=== PATIENT | female | born 1940 | race Caucasian/White ===

== ENCOUNTER 2019-08-18 19:34 | Inpatient (IN) | payer MEDICARE, OTHER ==
[~2019-08-18] VITALS: Ht 160 cm; Wt 79.8 kg
--- NOTE | 2019-08-18 19:30 | NUR ---
RECEIVED PATIENT VIA GURNEY FROM [facility]. PATIENT IS A/O X4. MACEDONIAN SPEAKING BUT ABLE TO MAKE SIMPLE NEEDS KNOWN. C/O SOME PAIN IN RIGHT HIP. ORIGINAL DRESSING IN PLACE, CLEAN/DRY AND INTACT. VSS UPON ADMISSION. AFEBRILE. DENIES ANY SOB. NO RESP. DISTRESS NOTED. ABDUCTION PILLOW IN PLACE. ORIENTED PATIENT TO ROOM AND CALL LIGHT. MADE COMFORTABLE IN BED. BED ALARM ON. CALL LIGHT IN REACH. ALL NEEDS ATTENDED. WILL CONTINUE TO MONITOR AND ASSESS.
[2019-08-18] MEDS ORDERED: Z GUARD REMEDY PASTE 57 GM TUBE TOP PRN (20:15)
[2019-08-18] MEDS ORDERED: ZOLP5TAB2 PO ×2 (20:24)
[2019-08-18] MEDS ORDERED: CHOL10002 PO (20:24)
[2019-08-18] MEDS ORDERED: ACET-2154 PO (20:24)
[2019-08-18] MEDS ORDERED: SITA100T PO (20:24)
[2019-08-18] MEDS ORDERED: ASPI81TA31 PO (20:24)
[2019-08-18] MEDS ORDERED: LISI-603 PO (20:24)
[2019-08-18] MEDS ORDERED: OXYC5CAP18 PO (20:24)
[2019-08-18] MEDS ORDERED: AMLO2.5T2 PO (20:24)
[2019-08-18] MEDS ORDERED: METF-440 PO (20:24)
[2019-08-18] MEDS ORDERED: MIRA50TA PO (20:24)
[2019-08-18] MEDS ORDERED: ATOR20TA PO (20:24)
[2019-08-18] MEDS ORDERED: RIVA20TA PO (20:24)
[2019-08-18] MEDS ORDERED: LINA290C PO (20:24)
[2019-08-18] MEDS ORDERED: TIZA4TAB5 PO (20:24)
[2019-08-18] MEDS ORDERED: ZOLPIDEM 5 MG TABLET PO PRN (20:45)
--- NOTE | 2019-08-18 21:50 | NUR ---
PATIENT AWAKE IN BED. C/O PAIN IN RIGHT HIP. PATIENT GIVEN OXY IR 5MG PO PRN ORDERED PER MD. VSS. CALL LIGHT IN REACH. ALL NEEDS ATTENDED. WILL CONTINUE TO MONITOR AND ASSESS.
[2019-08-18] MEDS: OXYCODONE HCL 5 MG TABLET PO PRN (21:55)
[2019-08-18 22:26] VITALS: BP 145/68
--- NOTE | 2019-08-18 23:00 | NUR ---
PATIENT ASLEEP IN BED. NO RESP. DISTRESS NOTED. NO S/S OF PAIN OR DISCOMFORT. NO FACIAL GRIMACE NOTED. CALL LIGHT IN REACH. ALL NEEDS ATTENDED. WILL CONTINUE TO MONITOR AND ASSES.
[2019-08-18] MEDS: ATORVASTATIN 20 MG TABLET PO SCH (23:01)
[2019-08-19] MEDS: OXYCODONE HCL 5 MG TABLET PO PRN ×2 (03:22→08:45)
[2019-08-19 05:46] VITALS: BP 141/70
--- NOTE | 2019-08-19 05:46 | NUR ---
PATIENT ASLEEP IN BED. VSS. NO S/S OF PAIN OR DISCOMFORT. PATIENT WAS GIVEN OXY IR 5MG PO PRN AT 0330. EFFECTIVE. SLEPT WELL THROUGHOUT THE NIGHT. CALL LIGHT IN REACH. ALL NEEDS ATTENDED. WILL CONTINUE TO MONITOR AND ASSESS.
[2019-08-19 06:58] LABS: *BLOOD, URINE 2+ (NEGATIVE); *CLARITY,URINE CLOUDY (CLEAR); *COLOR,URINE YELLOW (YELLOW); *KETONES,URINE 1+ (NEGATIVE); *UROBILINOGEN,URINE 0.2 E.U./dl (NORMAL); LEUKOCYTE ESTERASE ,URINE NEGATIVE (NEGATIVE); NITRITE, URINE NEGATIVE (NEGATIVE); UGLUCOSE NEGATIVE (NEGATIVE)
[2019-08-19 08:00] VITALS: BP 142/73
[2019-08-19] MEDS: ASPIRIN 81 MG TAB.CHEW PO SCH (08:37)
[2019-08-19] MEDS: CHOLECALCIFEROL 1,000 UNIT TABLET PO SCH (08:37)
[2019-08-19] MEDS: METFORMIN HCL 500 MG TABLET PO SCH (08:37)
[2019-08-19] MEDS: TIZANIDINE HCL 4 MG TABLET PO SCH ×2 (08:38→17:25)
[2019-08-19] MEDS: LISINOPRIL 20 MG TABLET PO SCH (08:39)
[2019-08-19] MEDS: AMLODIPINE 2.5 MG TABLET PO SCH (08:39)
[2019-08-19 08:58] LABS: *BILIRUBIN,URIN 1+ (NEGATIVE)
[2019-08-19 09:09] LABS: SQUAMOUS EPITHELIAL CELL,UR MODERATE /HPF (NONE SEEN); URINE AMORPHOUS URATE MANY /HPF
[2019-08-19 09:13] LABS: BACTERIA,URINE MODERATE /HPF (NONE SEEN)
--- NOTE | 2019-08-19 13:58 | NUR ---
Pt received this morning resting in bed. Pt assessed, AOx4, able to make needs known in Burundian although primarily Nigerian speaking. Pt c/o pain 04/23, PRN OxyIR administered per MD orders. Pt reports slight relief to 02/20. Plan of care discussed. Pt complaint with routinely scheduled morning medications. New telephone orders from MD adjusting pain medication to OxyContin 10mg Q8hr, and adding Senakot S for constipation, will follow up as needed. Cooperative with therapies as offered, when able. All safety and comfort needs attended to. No s/s of infection. Call light and personal belongings placed within reach. Bed in locked and lowest position. Will continue to monitor.
[2019-08-19] MEDS ORDERED: DEXTROSE 50% 50 ML DISP.SYRIN IV PRN (14:15)
[2019-08-19] MEDS ORDERED: INSULIN REGULAR, HUMAN 300 UNIT/3 ML VIAL SQ PRN (14:15)
[2019-08-19] MEDS: SENNOSIDES/DOCUSATE SODIUM TABLET PO SCH (14:30)
[2019-08-19] MEDS: MIRALAX 17 GM POWD.PACK PO PRN (14:32)
[2019-08-19] MEDS: OXYCODONE HCL 10 MG TAB.SR.12H PO SCH ×2 (14:32→22:28)
[2019-08-19 14:40] LABS: BASOPHILS % (AUTO) 0.3 % (0.0-2.0); EOSINOPHILS % (AUTO) 0.1 % (0.0-7.0); HEMOGLOBIN 9.8 g/dL (10.9-14.3); LYMPHOCYTES # (AUTO) 1.9 K/uL (20.0-40.0); LYMPHOCYTES % (AUTO) 15.2 % (20.5-51.5); MEAN CORPUSCULAR HEMOGLOBIN 30.6 uug (24.7-32.8); MEAN CORPUSCULAR HGB CONC 34 g/dL (32.3-35.6); MEAN CORPUSCULAR VOLUME 90.6 fL (75.5-95.3); MONOCYTES # (AUTO) 1.4 K/uL (2.0-10.0); MONOCYTES % (AUTO) 10.8 % (0.0-11.0); NEUTROPHILS # (AUTO) 9.4 K/uL (1.8-8.9); NEUTROPHILS % (AUTO) 73.6 % (38.5-71.5); PLATELET COUNT (AUTO) 256 K/uL (179-408); WHITE BLOOD COUNT (AUTO) 12.8 K/uL (3.8-11.8)
[2019-08-19 14:50] LABS: CREATININE 0.9 mg/dL (0.6-1.3); POTASSIUM 4.6 mmol/L (3.5-5.1)
[2019-08-19 15:02] LABS: THYROID STIMULATING HORMONE 0.724 mIU/mL (0.358-3.740)
[2019-08-19 15:24] LABS: BILIRUBIN,TOTAL 0.5 mg/dL (0.2-1.0); MAGNESIUM 2.7 mg/dL (1.8-2.4); PHOSPHOROUS 2.9 mg/dL (2.5-4.9); URIC ACID 3.7 mg/dL (2.6-6.0)
[2019-08-19 16:42] VITALS: BP 99/55
[2019-08-19] MEDS: BLOOD SUGAR DIAGNOSTIC 1 EACH STRIP VI SCH ×2 (17:25→20:40)
[2019-08-19] MEDS: RIVAROXABAN 10 MG TABLET PO SCH (17:28)
[2019-08-19] MEDS ORDERED: ZOLPIDEM 5 MG TABLET PO SCH (18:00)
[2019-08-19] MEDS ORDERED: RIVAROXABAN 10 MG TABLET PO ONE (18:00)
[2019-08-19] MEDS ORDERED: RIVAROXABAN 10 MG TABLET PO SCH (18:00)
[2019-08-19] MEDS ORDERED: BISACODYL 5 MG TABLET.DR PO ONE (19:00)
[2019-08-19 19:26] VITALS: BP 98/58
--- NOTE | 2019-08-19 20:00 | NUR ---
Patient received into care, laying in bed, resting comfortably. Patient is alert/oriented x3 and has no complaints of pain or discomfort at this time. All safety and fall precaution measures are in place. Call light and personal items are within reach at all times. Will continue to monitor and assess.
[2019-08-19] MEDS ORDERED: ACETAMINOPHEN 325 MG TABLET PO PRN (20:15)
[2019-08-19] MEDS: ATORVASTATIN 20 MG TABLET PO SCH (20:32)
[2019-08-19] MEDS: DOCUSATE SODIUM 100 MG CAPSULE PO SCH (20:32)
[2019-08-20 04:38] VITALS: BP 135/67
[2019-08-20] MEDS: OXYCODONE HCL 10 MG TAB.SR.12H PO SCH ×2 (05:41→13:57)
--- NOTE | 2019-08-20 06:57 | NUR ---
Patient slept throughout night with no complaints of pain or discomfort verbalized or noted/observed by nurse. All prescribed medications provided as ordered and tolerated well by patient, with no adverse side effects verbalized or noted/observed by nurse. All nursing needs were met promptly and patient is warm, dry, and comfortable. All safety and fall precaution measures remain in place. Call light and personal items remain within reach at all times.
[2019-08-20 08:00] VITALS: BP 125/66
[2019-08-20] MEDS: DOCUSATE SODIUM 100 MG CAPSULE PO SCH ×2 (08:32→20:50)
[2019-08-20] MEDS: SENNOSIDES/DOCUSATE SODIUM TABLET PO SCH (08:32)
[2019-08-20] MEDS: CHOLECALCIFEROL 1,000 UNIT TABLET PO SCH (08:32)
[2019-08-20] MEDS: METFORMIN HCL 500 MG TABLET PO SCH (08:32)
[2019-08-20] MEDS: ASPIRIN 81 MG TAB.CHEW PO SCH (08:32)
[2019-08-20] MEDS: TIZANIDINE HCL 4 MG TABLET PO SCH ×2 (08:33→16:46)
[2019-08-20] MEDS: OXYCODONE HCL 5 MG TABLET PO PRN (08:33)
[2019-08-20] MEDS: LINAGLIPTIN 5 MG TABLET PO SCH (08:33)
[2019-08-20] MEDS: AMLODIPINE 2.5 MG TABLET PO SCH (08:34)
[2019-08-20] MEDS: LISINOPRIL 20 MG TABLET PO SCH (08:34)
[2019-08-20] MEDS ORDERED: Medication Not On Formulary EA (Sitagliptin Phosphate (Januvia) 100 MG) PO SCH (09:00)
[2019-08-20] MEDS ORDERED: MAGNESIUM HYDROXIDE 30 ML LIQUID UDC PO PRN (16:15)
[2019-08-20] MEDS ORDERED: BISACODYL 10 MG SUPP.RECT RC PRN (16:15)
[2019-08-20 16:34] VITALS: BP 150/54
[2019-08-20] MEDS: RIVAROXABAN 10 MG TABLET PO SCH (16:49)
--- NOTE | 2019-08-20 19:30 | NUR ---
Received patient in bed awake, alert and oriented. No complaints of pain at this time. Safety measures observed. Call light in reach
[2019-08-20 20:00] VITALS: BP 95/42
[2019-08-20 20:30] VITALS: BP 122/52
[2019-08-20] MEDS: OXYCODONE/APAP 5-325 MG TABLET PO SCH (20:50)
[2019-08-20] MEDS: ATORVASTATIN 20 MG TABLET PO SCH (20:50)
[2019-08-20 20:59] VITALS: BP 122/52
[2019-08-21] MEDS: OXYCODONE/APAP 5-325 MG TABLET PO SCH ×6 (00:28→21:23)
[2019-08-21 05:12] VITALS: BP 133/55
--- NOTE | 2019-08-21 06:39 | NUR ---
Patient slept intermittently. On routine pain management. c/o constipation, PRN Dulcolax supp and MOM given, still ineffective. All needs attended. Will endorse accordingly
[2019-08-21] MEDS: METFORMIN HCL 500 MG TABLET PO SCH (09:12)
[2019-08-21] MEDS: CHOLECALCIFEROL 1,000 UNIT TABLET PO SCH (09:27)
[2019-08-21] MEDS: SENNOSIDES/DOCUSATE SODIUM TABLET PO SCH (09:27)
[2019-08-21] MEDS: DOCUSATE SODIUM 100 MG CAPSULE PO SCH ×2 (09:27→21:23)
[2019-08-21] MEDS: ASPIRIN 81 MG TAB.CHEW PO SCH (09:27)
[2019-08-21] MEDS: LINAGLIPTIN 5 MG TABLET PO SCH (09:32)
[2019-08-21] MEDS: AMLODIPINE 2.5 MG TABLET PO SCH (09:33)
[2019-08-21] MEDS: LISINOPRIL 20 MG TABLET PO SCH (09:33)
[2019-08-21] MEDS: TIZANIDINE HCL 4 MG TABLET PO SCH (09:33)
[2019-08-21 10:14] VITALS: BP 162/52
--- NOTE | 2019-08-21 12:42 | NUR ---
INDIVIDUALIZE OVERALL PLAN OF CARE
[2019-08-21 16:40] VITALS: BP 109/60
[2019-08-21] MEDS: RIVAROXABAN 10 MG TABLET PO SCH (18:06)
--- NOTE | 2019-08-21 19:30 | NUR ---
Received patient in bed asleep but aroused easily. No SOB noted. No complaints of pain at this time. Safety measures observed. Call light in reach
--- NOTE | 2019-08-21 19:51 | NUR ---
Patient is AAO x 4, Guyanese speaking mostly but able to express needs in Estonian. NO acute distress noted. Patient in RA and sating above 96%. Vital signs taken and stable for patient. Due medications administered. Right hip surgical site intact and dry. On routine Percocet 5/325mg PO 1 tab for pain mgnt and effective. Pt. on PT/OT therapy. Daughter was here and discussed plan of care and explained procedures and policies regarding pt.'s own medications. Daughter signed and took patient's medications that was received from admission. Thanked for the care provided. Needs met, safety measures in place, call light left at bed side and will continue wit care.
[2019-08-21 19:58] VITALS: BP 127/42
[2019-08-21] MEDS: ATORVASTATIN 20 MG TABLET PO SCH (21:23)
[2019-08-22] MEDS: OXYCODONE/APAP 5-325 MG TABLET PO SCH ×6 (00:29→20:42)
[2019-08-22 04:46] VITALS: BP 136/66
--- NOTE | 2019-08-22 07:12 | NUR ---
Patient slept well. No c/o pain at this time. On routine pain management. Dressing on R hip intact and dry. All needs attended. Will endorse accordingly
[2019-08-22 07:38] LABS: BASOPHILS # (AUTO) 0.1 K/uL (0.0-8.0); BASOPHILS % (AUTO) 0.6 % (0.0-2.0); EOSINOPHILS # (AUTO) 0.2 K/uL (0.0-0.7); EOSINOPHILS % (AUTO) 2.5 % (0.0-7.0); HEMATOCRIT 26.9 % (31.2-41.9); HEMOGLOBIN 9.2 g/dL (10.9-14.3); LYMPHOCYTES # (AUTO) 1.3 K/uL (20.0-40.0); LYMPHOCYTES % (AUTO) 15.5 % (20.5-51.5); MEAN CORPUSCULAR HGB CONC 34 g/dL (32.3-35.6); MEAN CORPUSCULAR VOLUME 90.3 fL (75.5-95.3); MONOCYTES # (AUTO) 0.8 K/uL (2.0-10.0); MONOCYTES % (AUTO) 9.7 % (0.0-11.0); NEUTROPHILS # (AUTO) 5.8 K/uL (1.8-8.9); NEUTROPHILS % (AUTO) 71.7 % (38.5-71.5); PLATELET COUNT (AUTO) 262 K/uL (179-408); RED BLOOD CELL COUNT(AUTO) 2.98 MIL/uL (3.63-4.92); WHITE BLOOD COUNT (AUTO) 8.1 K/uL (3.8-11.8)
[2019-08-22 07:39] LABS: CARBON DIOXIDE 29 mmol/L (21-32); CHLORIDE 103 mmol/L (98-107); CREATININE 0.5 mg/dL (0.6-1.3); GLUCOSE 97 mg/dL (74-106); POTASSIUM 4.1 mmol/L (3.5-5.1); UREA NITROGEN, BLOOD 28 mg/dL (7-18)
[2019-08-22 07:40] VITALS: BP 132/50
[2019-08-22] MEDS: CHOLECALCIFEROL 1,000 UNIT TABLET PO SCH (08:24)
[2019-08-22] MEDS: SENNOSIDES/DOCUSATE SODIUM TABLET PO SCH (08:24)
[2019-08-22] MEDS: ASPIRIN 81 MG TAB.CHEW PO SCH (08:24)
[2019-08-22] MEDS: DOCUSATE SODIUM 100 MG CAPSULE PO SCH ×2 (08:24→20:42)
[2019-08-22] MEDS: LINAGLIPTIN 5 MG TABLET PO SCH (08:25)
[2019-08-22] MEDS: METFORMIN HCL 500 MG TABLET PO SCH (08:25)
[2019-08-22] MEDS: AMLODIPINE 2.5 MG TABLET PO SCH (08:27)
[2019-08-22] MEDS: LISINOPRIL 20 MG TABLET PO SCH (09:00)
[2019-08-22 15:29] VITALS: BP 113/50
[2019-08-22] MEDS: RIVAROXABAN 10 MG TABLET PO SCH (17:37)
--- NOTE | 2019-08-22 18:36 | NUR ---
Pt assessed, able to make needs known, no acute distress, or SOB. Pt reports pain being managed through medication regimen, although at time breaker machine tender. VSS on 2 L NC. Pt compliant with medication administration and therapies as offered. Hip precautions in place. Right hip dressing dry and intact. No s/s of infection. All safety and comfort needs attended to, call light and personal items within reach. Bed locked, in lowest position with side rails up x2, and alarm on. Will continue to monitor.
--- NOTE | 2019-08-22 19:45 | NUR ---
RECEIVED PT AWAKE, ALERT AND ORIENTEDX3. PT IN NO ACUTE DISTRESS . SAFETY AND COMFORT PROVIDED. WILL CONTINUE TO MONITOR.
[2019-08-22 20:15] VITALS: BP 146/56
[2019-08-22] MEDS: ATORVASTATIN 20 MG TABLET PO SCH (20:42)
[2019-08-23] MEDS: OXYCODONE/APAP 5-325 MG TABLET PO SCH ×4 (00:09→12:08)
[2019-08-23 04:16] VITALS: BP 136/65
--- NOTE | 2019-08-23 06:14 | NUR ---
PT SLEPT INTERMITTENTLY.PT IN NO ACUTE DISTRESS. PRESCRIBED MEDICATION GIVEN AND PT TOLERATED IT WELL. DRESSING ON RIGHT HIP INTACT. SAFETY AND COMFORT PROVIDED. ALL NEEDS ARE MET. WILL ENDORSE ACCORDINGLY TO INCOMING NURSE FOR CONTINUITY OF CARE.
[2019-08-23 07:40] VITALS: BP 127/61
--- NOTE | 2019-08-23 08:00 | NUR ---
Received patient in bed, awake and verbally responsive. No signs of distress noted. No SOB. No complain of pain at this time. kept the call light within easy reach. kept comfortable. Will continue to monitor.
[2019-08-23] MEDS: DOCUSATE SODIUM 100 MG CAPSULE PO SCH ×2 (08:25→20:37)
[2019-08-23] MEDS: ASPIRIN 81 MG TAB.CHEW PO SCH (08:25)
[2019-08-23] MEDS: LINAGLIPTIN 5 MG TABLET PO SCH (08:26)
[2019-08-23] MEDS: CHOLECALCIFEROL 1,000 UNIT TABLET PO SCH (08:26)
[2019-08-23] MEDS: SENNOSIDES/DOCUSATE SODIUM TABLET PO SCH (08:26)
[2019-08-23] MEDS: METFORMIN HCL 500 MG TABLET PO SCH (08:26)
[2019-08-23] MEDS: LISINOPRIL 20 MG TABLET PO SCH (08:27)
[2019-08-23] MEDS: AMLODIPINE 2.5 MG TABLET PO SCH (08:27)
[2019-08-23] MEDS: OXYCODONE HCL 10 MG TAB.SR.12H PO SCH ×2 (14:48→18:06)
[2019-08-23 15:48] VITALS: BP 128/57
[2019-08-23] MEDS: RIVAROXABAN 10 MG TABLET PO SCH (18:08)
--- NOTE | 2019-08-23 18:29 | NUR ---
patient in bed, awake, alert and verbally responsive. No signs of distress. No SOB. Routine pain medications given as ordered. All needs attended and met. patient able to Ambulate to restroom with minimal Assist. kept the call light within easy reach. Will endorse to Oncoming Nurse.
--- NOTE | 2019-08-23 19:40 | NUR ---
Awake, watching TV during initial rounds. Panamanian speaking, No s/s of pain/discomforts at this time. Safety measure and fall precaution maintained. Continue care as planned.
[2019-08-23] MEDS: ATORVASTATIN 20 MG TABLET PO SCH (20:37)
[2019-08-23 20:41] VITALS: BP 137/53
[2019-08-24] MEDS: OXYCODONE HCL 10 MG TAB.SR.12H PO SCH ×5 (00:02→22:56)
[2019-08-24 06:02] VITALS: BP 136/68
--- NOTE | 2019-08-24 07:15 | NUR ---
Shift End Report: VS stable. Slept in between care. On routine Oxycontin as ordered with help. All needs attended and met. No significant event reported all night. Continue current rehab plan of care.
--- NOTE | 2019-08-24 07:15 | NUR ---
Received patient in bed, awake and verbally responsive. No signs of distress noted. No SOB. No complain of Pain or discomfort noted. Kept the call light within easy reach. Will continue to monitor.
[2019-08-24 08:08] VITALS: BP 145/55
[2019-08-24] MEDS: METFORMIN HCL 500 MG TABLET PO SCH (08:16)
[2019-08-24] MEDS: ASPIRIN 81 MG TAB.CHEW PO SCH (08:17)
[2019-08-24] MEDS: CHOLECALCIFEROL 1,000 UNIT TABLET PO SCH (08:18)
[2019-08-24] MEDS: DOCUSATE SODIUM 100 MG CAPSULE PO SCH ×2 (08:18→20:36)
[2019-08-24] MEDS: SENNOSIDES/DOCUSATE SODIUM TABLET PO SCH (08:18)
[2019-08-24] MEDS: AMLODIPINE 2.5 MG TABLET PO SCH (08:18)
[2019-08-24] MEDS: LINAGLIPTIN 5 MG TABLET PO SCH (08:19)
[2019-08-24] MEDS: LISINOPRIL 20 MG TABLET PO SCH (08:19)
[2019-08-24 14:42] VITALS: BP 112/52
[2019-08-24] MEDS: RIVAROXABAN 10 MG TABLET PO SCH (17:51)
--- NOTE | 2019-08-24 18:38 | NUR ---
Patient in Bed, awake and verbally responsive. No signs of distress noted. No SOB. On routine pain medications as ordered. No complain of pain at this time. Able to Ambulate with FWW. All needs attended and met. kept clean and comfortable. Kept the call light within easy reach. Will endorse to Oncoming Nurse.
--- NOTE | 2019-08-24 19:20 | NUR ---
Received patient awake in bed, AO x 4, Filipino speaking, understands some Yemeni. Patient in no apparent distress at the moment. No shortness of breath. Bed locked, in low position with two side rails up. Safety protocols in place. Immediate needs attended. Call light within reach. Will continue to monitor throughout shift.
[2019-08-24 19:41] VITALS: BP 122/61
[2019-08-24] MEDS: ATORVASTATIN 20 MG TABLET PO SCH (20:36)
[2019-08-25 04:52] VITALS: BP 134/57
[2019-08-25] MEDS: OXYCODONE HCL 10 MG TAB.SR.12H PO SCH ×3 (05:26→18:27)
--- NOTE | 2019-08-25 06:37 | NUR ---
PATIENT SLEPT WELL THROUGHOUT THE NIGHT. COMPLAINED OF PAIN, MANAGED PAIN APPROPRIATELY WITH MEDICATIONS. VITAL SIGNS WITHIN NORMAL LIMITS. NEEDS ATTENDED. WILL ENDORSE TO ONCOMING SHIFT.
[2019-08-25 08:00] VITALS: BP 131/63
[2019-08-25] MEDS: METFORMIN HCL 500 MG TABLET PO SCH (09:31)
[2019-08-25] MEDS: OXYCODONE/APAP 5-325 MG TABLET PO PRN (09:31)
[2019-08-25] MEDS: ASPIRIN 81 MG TAB.CHEW PO SCH (09:32)
[2019-08-25] MEDS: SENNOSIDES/DOCUSATE SODIUM TABLET PO SCH (09:33)
[2019-08-25] MEDS: DOCUSATE SODIUM 100 MG CAPSULE PO SCH ×2 (09:33→20:17)
[2019-08-25] MEDS: LINAGLIPTIN 5 MG TABLET PO SCH (09:34)
[2019-08-25] MEDS: LISINOPRIL 20 MG TABLET PO SCH (09:34)
[2019-08-25] MEDS: AMLODIPINE 2.5 MG TABLET PO SCH (09:34)
[2019-08-25] MEDS: CHOLECALCIFEROL 1,000 UNIT TABLET PO SCH (09:36)
[2019-08-25 16:51] VITALS: BP 118/57
[2019-08-25] MEDS: RIVAROXABAN 10 MG TABLET PO SCH (18:30)
--- NOTE | 2019-08-25 19:40 | NUR ---
Received patient in bed, watching video on her laptop. AAO x4. Not in acute distress or SOB. On room air. Able to make needs known. No complain of pain at this time. Physical assessment done. Fall prevention observed. Safety measures maintained. Bed in low and lock position, alarm on, side rails up x2 for safety. Call light and frequently used items within reach. Continue to monitor.
[2019-08-25 20:11] VITALS: BP 125/64
[2019-08-25] MEDS: ATORVASTATIN 20 MG TABLET PO SCH (20:18)
[2019-08-26] MEDS: OXYCODONE HCL 10 MG TAB.SR.12H PO SCH ×6 (00:45→23:16)
--- NOTE | 2019-08-26 02:05 | NUR ---
Could not give the scheduled Oxycodone 10 mg tab on time at 0000 because the patient was sleeping, no sign of pain. She woke up and asked for pain medication at 0158. Pain medication given at that time. Continue to monitor.
[2019-08-26 04:30] VITALS: BP 128/79
[2019-08-26 08:00] VITALS: BP 123/68
[2019-08-26] MEDS: SENNOSIDES/DOCUSATE SODIUM TABLET PO SCH (08:59)
[2019-08-26] MEDS: ASPIRIN 81 MG TAB.CHEW PO SCH (08:59)
[2019-08-26] MEDS: DOCUSATE SODIUM 100 MG CAPSULE PO SCH ×2 (08:59→20:40)
[2019-08-26] MEDS: CHOLECALCIFEROL 1,000 UNIT TABLET PO SCH (08:59)
[2019-08-26] MEDS: METFORMIN HCL 500 MG TABLET PO SCH (08:59)
[2019-08-26] MEDS: OXYCODONE/APAP 5-325 MG TABLET PO PRN (09:00)
[2019-08-26] MEDS: LINAGLIPTIN 5 MG TABLET PO SCH (09:08)
[2019-08-26] MEDS: LISINOPRIL 20 MG TABLET PO SCH (09:09)
[2019-08-26] MEDS: AMLODIPINE 2.5 MG TABLET PO SCH (09:09)
[2019-08-26] MEDS: MIRALAX 17 GM POWD.PACK PO PRN (12:25)
[2019-08-26 16:57] VITALS: BP 132/58
[2019-08-26] MEDS: RIVAROXABAN 10 MG TABLET PO SCH (17:26)
--- NOTE | 2019-08-26 19:50 | NUR ---
PATIENT ALERT ORIENTED, NO SOB NO CHEST PAIN, R HIP WITH TANVIR, NO DRAINAGE NOTED, PATIENT ON PAIN MANAGEMENT ORDERED, KEPT CLEAN DRY AND COMFORTABLE, CALL LIGHT WITHIN REACH.
[2019-08-26] MEDS: ATORVASTATIN 20 MG TABLET PO SCH (20:40)
[2019-08-26 20:54] VITALS: BP 143/62
[2019-08-27 04:20] VITALS: BP 135/63
[2019-08-27] MEDS: OXYCODONE HCL 10 MG TAB.SR.12H PO SCH ×4 (05:12→23:39)
--- NOTE | 2019-08-27 05:43 | NUR ---
PATIENT ALERT ORIENTED, NO SOB NO CHEST PAIN, CONT ON PAIN MANAGEMENT DUE R HIP SURGERY. PATIENT MEDICATION EFFECTIVE AT THIS TIME. PATIENT ASSISTED WITH TOILETING, KEPT CLEAN AND DRY, CONT TO MONITOR.
[2019-08-27 07:42] VITALS: BP 144/76
--- NOTE | 2019-08-27 08:00 | NUR ---
Received patient in bed, awake and verbally responsive. No signs of distress noted. No SOB. No complain of Pain or discomfort noted. Kept the call light within easy reach. Will continue to monitor for safety and comfort.
[2019-08-27] MEDS: SENNOSIDES/DOCUSATE SODIUM TABLET PO SCH (08:30)
[2019-08-27] MEDS: CHOLECALCIFEROL 1,000 UNIT TABLET PO SCH (08:31)
[2019-08-27] MEDS: OXYCODONE/APAP 5-325 MG TABLET PO PRN (08:31)
[2019-08-27] MEDS: DOCUSATE SODIUM 100 MG CAPSULE PO SCH ×2 (08:32→21:55)
[2019-08-27] MEDS: AMLODIPINE 2.5 MG TABLET PO SCH (08:32)
[2019-08-27] MEDS: ASPIRIN 81 MG TAB.CHEW PO SCH (08:32)
[2019-08-27] MEDS: METFORMIN HCL 500 MG TABLET PO SCH (08:32)
[2019-08-27] MEDS: LINAGLIPTIN 5 MG TABLET PO SCH (08:32)
[2019-08-27] MEDS: LISINOPRIL 20 MG TABLET PO SCH (08:33)
--- NOTE | 2019-08-27 14:33 | NUR ---
PT TRANSPORTED TO DR. SALES FOR APPOINTMENT. XRAY CD, PROG SHEET, ORDER SHEET AND LIST OF MEDS GIVEN TO AMBULANCE TRANSPORT STAFF. NO ACUTE DISTRESS OR SOB NOTED. PT ALERT AND ORIENTED X4.
--- NOTE | 2019-08-27 16:45 | NUR ---
PT RETURN FROM APPT WITH DR. JENKINS. NEW ORDERS PER DR. JENKINS: PT, WBAT WITH WALKER. F/U WITH DR. JENKINS IN 4 TO 6 WEEKS. ORDERS UPDATED.
[2019-08-27] MEDS: RIVAROXABAN 10 MG TABLET PO SCH (17:09)
[2019-08-27 17:16] VITALS: BP 150/74
--- NOTE | 2019-08-27 18:00 | NUR ---
PT RESTING IN BED. PAIN MANAGED WITH MEDICATION. PT STATES HAVING A PAIN LEVEL OF 4 AFTER MEDS. INCISION SITE CLEAN WITHOUT DRAINAGE. NO ACUTE DISTRESS OR SOB NOTED. BED LOCKED AND IN LOW POSITION. CALL LIGHT WITHIN REACH. PT PLEASANT AND COOPERATIVE. A+O X4. PT IS DIET AND MEDICATION COMPLIANT. WILL GIVE REPORT ACCORDINGLY TO INCOMING SHIFT.
--- NOTE | 2019-08-27 19:55 | NUR ---
PT'S ON BED AWAKE,ALERT AND RESPONSIVE, NOT IN DISTRESS, NO C/O PAIN NOR DISCOMFORT AT THIS TIME. RIGHT HIP SURGICAL INCISION WITH STERI STRIPS INTACT AND OPEN TO AIR.NO REDNESS ON THE SURROUNDING AREA.
[2019-08-27 21:33] VITALS: BP 146/54
[2019-08-27] MEDS: ATORVASTATIN 20 MG TABLET PO SCH (21:55)
[2019-08-28] MEDS: OXYCODONE HCL 10 MG TAB.SR.12H PO SCH ×4 (06:18→23:52)
[2019-08-28 06:23] VITALS: BP 146/63
--- NOTE | 2019-08-28 07:31 | NUR ---
PICTURE TAKEN SCHEDULED. PT SLEPT WELL DURING THE SHIFT . ROUTINE PAIN MED OXYCODONE 10 MG PO Q GIVEN SCHEDULED 6H, EFFECTIVE . ASSISTED TO THE BATHROOM FOR SAFETY.
--- NOTE | 2019-08-28 08:00 | NUR ---
Received patient awake in bed. AAOx4. Mainly Nicaraguan speaking but able to verbalize basic needs in [place] African. No SOB noted. Complaining of R hip pain of 8/10; will medicate appropriately. Steristrips on R hip surgical incision intact; clean and dry. No s/s of infection. Safety measures implemented. Call light within reach. Will continue to monitor.
[2019-08-28] MEDS: AMLODIPINE 2.5 MG TABLET PO SCH (08:26)
[2019-08-28] MEDS: SENNOSIDES/DOCUSATE SODIUM TABLET PO SCH (08:26)
[2019-08-28] MEDS: DOCUSATE SODIUM 100 MG CAPSULE PO SCH ×2 (08:26→20:41)
[2019-08-28] MEDS: LINAGLIPTIN 5 MG TABLET PO SCH (08:26)
[2019-08-28] MEDS: ASPIRIN 81 MG TAB.CHEW PO SCH (08:26)
[2019-08-28] MEDS: OXYCODONE/APAP 5-325 MG TABLET PO PRN ×2 (08:26→20:43)
[2019-08-28] MEDS: LISINOPRIL 20 MG TABLET PO SCH (08:27)
[2019-08-28] MEDS: CHOLECALCIFEROL 1,000 UNIT TABLET PO SCH (08:27)
[2019-08-28] MEDS: METFORMIN HCL 500 MG TABLET PO SCH (08:27)
[2019-08-28 08:59] VITALS: BP 118/64
[2019-08-28] MEDS: RIVAROXABAN 10 MG TABLET PO SCH (17:26)
--- NOTE | 2019-08-28 17:58 | NUR ---
Patient resting in bed comfortably at this time. Patient verbalized that pain is relieved at this time at 2/10. No SOB noted. Denies chest pain. Comfort provided at all times. Will endorse care accordingly.
--- NOTE | 2019-08-28 19:35 | NUR ---
Awake during initial rounds, watching TV at this time, presenting tolerable pain on her lower back. Turned and repositioned for comfort. Will monitor. Safety measure and fall precaution maintained. Continue care as planned.
[2019-08-28 19:55] VITALS: BP 133/61
[2019-08-28] MEDS: ATORVASTATIN 20 MG TABLET PO SCH (20:41)
[2019-08-28] MEDS: MIRALAX 17 GM POWD.PACK PO PRN (20:45)
[2019-08-29 04:38] VITALS: BP 147/68
[2019-08-29] MEDS: OXYCODONE HCL 10 MG TAB.SR.12H PO SCH ×4 (05:39→23:25)
--- NOTE | 2019-08-29 06:52 | NUR ---
Shift End Report: VS stable. Slept good. Medicated once for complaint of pain with relief. No further complaint presented. All needs attended and met. No significant event reported. Continue current rehab plan of care.
[2019-08-29 07:27] LABS: BASOPHILS # (AUTO) 0.1 K/uL (0.0-8.0); EOSINOPHILS # (AUTO) 0.2 K/uL (0.0-0.7); EOSINOPHILS % (AUTO) 3.3 % (0.0-7.0); HEMATOCRIT 28.3 % (31.2-41.9); HEMOGLOBIN 9.9 g/dL (10.9-14.3); LYMPHOCYTES # (AUTO) 1.1 K/uL (20.0-40.0); LYMPHOCYTES % (AUTO) 15.4 % (20.5-51.5); MEAN CORPUSCULAR HEMOGLOBIN 32.9 uug (24.7-32.8); MEAN CORPUSCULAR HGB CONC 35 g/dL (32.3-35.6); MONOCYTES # (AUTO) 0.8 K/uL (2.0-10.0); MONOCYTES % (AUTO) 11.3 % (0.0-11.0); NEUTROPHILS # (AUTO) 4.9 K/uL (1.8-8.9); PLATELET COUNT (AUTO) 338 K/uL (179-408); RED BLOOD CELL COUNT(AUTO) 3.01 MIL/uL (3.63-4.92); WHITE BLOOD COUNT (AUTO) 7.1 K/uL (3.8-11.8)
[2019-08-29 07:40] LABS: CREATININE 0.6 mg/dL (0.6-1.3); MAGNESIUM 1.8 mg/dL (1.8-2.4); PHOSPHOROUS 3.7 mg/dL (2.5-4.9); POTASSIUM 3.8 mmol/L (3.5-5.1)
[2019-08-29] MEDS: CHOLECALCIFEROL 1,000 UNIT TABLET PO SCH (08:31)
[2019-08-29] MEDS: DOCUSATE SODIUM 100 MG CAPSULE PO SCH ×2 (08:31→20:17)
[2019-08-29] MEDS: LISINOPRIL 20 MG TABLET PO SCH (08:31)
[2019-08-29] MEDS: SENNOSIDES/DOCUSATE SODIUM TABLET PO SCH (08:31)
[2019-08-29] MEDS: METFORMIN HCL 500 MG TABLET PO SCH (08:31)
[2019-08-29] MEDS: LINAGLIPTIN 5 MG TABLET PO SCH (08:32)
[2019-08-29] MEDS: ASPIRIN 81 MG TAB.CHEW PO SCH (08:32)
[2019-08-29] MEDS: AMLODIPINE 2.5 MG TABLET PO SCH (08:32)
[2019-08-29] MEDS: OXYCODONE/APAP 5-325 MG TABLET PO PRN (08:56)
[2019-08-29 10:10] VITALS: BP 132/49
--- NOTE | 2019-08-29 14:58 | NUR ---
PATIENT CONTINUE THERAPY FOR AMBULATION AND ADL ACTIVITIES. CONTINUE TURNING POSITION FOR SKIN BUTTOCKS OPEN WOUND. CONTINUE SKIN TREATMENT PROVIDED. PATIENT REFUSE BED ALARM ON DESPITE EDUCATION. ADVICE PATIENT TO CALL STAFF WHEN GOING OUT FROM BED FOR FALL PRECAUTION. PATIENT AGREED. CALL LIGHT ON BEDSIDE. WILL CONTINUE MONITOR
[2019-08-29 15:55] VITALS: BP 129/53
[2019-08-29] MEDS: RIVAROXABAN 10 MG TABLET PO SCH (17:05)
--- NOTE | 2019-08-29 19:40 | NUR ---
Received patient in bed. AAO x4. Not in acute distress or SOB. On room air. Able to make needs known. No complain of pain at this time. Physical assessment done. Fall prevention observed. Safety measures maintained. Bed in low and lock position, alarm on, side rails up x2 for safety. Call light and frequently used items within reach. Continue to monitor.
[2019-08-29 19:42] VITALS: BP 114/51
[2019-08-29] MEDS: ATORVASTATIN 20 MG TABLET PO SCH (20:17)
[2019-08-30 04:59] VITALS: BP 147/60
[2019-08-30] MEDS: OXYCODONE HCL 10 MG TAB.SR.12H PO SCH ×4 (05:42→23:46)
[2019-08-30] MEDS: AMLODIPINE 2.5 MG TABLET PO SCH (08:31)
[2019-08-30] MEDS: LINAGLIPTIN 5 MG TABLET PO SCH (08:31)
[2019-08-30] MEDS: METFORMIN HCL 500 MG TABLET PO SCH (08:31)
[2019-08-30] MEDS: CHOLECALCIFEROL 1,000 UNIT TABLET PO SCH (08:31)
[2019-08-30] MEDS: ASPIRIN 81 MG TAB.CHEW PO SCH (08:31)
[2019-08-30] MEDS: SENNOSIDES/DOCUSATE SODIUM TABLET PO SCH (08:31)
[2019-08-30] MEDS: DOCUSATE SODIUM 100 MG CAPSULE PO SCH ×2 (08:31→20:42)
[2019-08-30] MEDS: LISINOPRIL 20 MG TABLET PO SCH (08:32)
[2019-08-30 09:01] VITALS: BP 149/70
--- NOTE | 2019-08-30 13:56 | NUR ---
WOUND CARE CONSULT: PT PRESENTS WITH HEALING SCRATCH TO LEFT BUTTOCK. RECOMMENDATIONS MADE FOR SKIN CARE AND PROTECTION. DISCUSSED WITH NURSING STAFF. PT IS CONTINENT. WILL SEE PRN. SINGH IN AGREEMENT WITH PLAN OF CARE. Addendum: 08/30/19 at 1357 by TAYA WHITFIELD RN Amended: Links added.
--- NOTE | 2019-08-30 14:01 | NUR ---
PATIENT SEEN AND EXAMINED BY WOUND NURSE REGARDING HEALING SCRATCH IN LEFT BUTTOCKS. ORDERED CLEANSE THE WOUND AND APPLIED Z GUARD, COVERED WITH MEPILIEX. WILL CONTINUE MONITOR
--- NOTE | 2019-08-30 15:21 | NUR ---
INTERDISCIPLINARY TEAM CONFERENCE
[2019-08-30 15:43] VITALS: BP 134/64
[2019-08-30] MEDS: RIVAROXABAN 10 MG TABLET PO SCH (17:03)
[2019-08-30] MEDS: ATORVASTATIN 20 MG TABLET PO SCH (20:43)
[2019-08-30 20:59] VITALS: BP 135/50
--- NOTE | 2019-08-31 04:21 | NUR ---
aaox4. admitted for right total hip arthroplasty. Right hip incision with steristrips MALI. Needs attended. VSS. On pain meds as scheduled, given with relief noted. OOB to the BR with walker with supervision. Voiding freely. No acute distress noted. For discharge today. Will monitor patient.
[2019-08-31 05:47] VITALS: BP 139/58
[2019-08-31] MEDS: OXYCODONE HCL 10 MG TAB.SR.12H PO SCH ×2 (06:02→11:49)
--- NOTE | 2019-08-31 06:45 | NUR ---
End of shift note: slept well most of the shift. Tolerated po meds well especially oxycontin 10mg given at scheduled times. OOB to the BR with shona. Voiding without difficulty. Right hip steristrips intact. For discharge today.
--- NOTE | 2019-08-31 07:34 | NUR ---
patient noted resting in bed with eyes closed, no facial cues of pain at this time, no signs of distress noted, call light in reach, bed locked locked and in lowest position, all needs met
[2019-08-31 08:54] VITALS: BP 143/39
[2019-08-31] MEDS: SENNOSIDES/DOCUSATE SODIUM TABLET PO SCH (08:57)
[2019-08-31] MEDS: CHOLECALCIFEROL 1,000 UNIT TABLET PO SCH (08:57)
[2019-08-31] MEDS: METFORMIN HCL 500 MG TABLET PO SCH (08:57)
[2019-08-31] MEDS: DOCUSATE SODIUM 100 MG CAPSULE PO SCH (08:57)
[2019-08-31] MEDS: LINAGLIPTIN 5 MG TABLET PO SCH (08:57)
[2019-08-31] MEDS: ASPIRIN 81 MG TAB.CHEW PO SCH (08:57)
[2019-08-31 08:58] VITALS: BP 143/59
[2019-08-31] MEDS: LISINOPRIL 20 MG TABLET PO SCH (08:58)
[2019-08-31] MEDS: AMLODIPINE 2.5 MG TABLET PO SCH (08:58)
--- NOTE | 2019-08-31 13:04 | NUR ---
patient discharged at this time via private car and son in law, vitals: 143/59, 94% on room air, 18 respirations, 82 pulse, 98.0 oral temperature, pictures of right hip incision and left buttocks abrasion taken and placed in chart, MD Amin and Nicole [employer] OPERATOR notified of patients discharge, exit care provided, discharge paperwork signed and copy made, all belongings accounted for, Medication Rx and pain medication script given to patient, family instructed to set of follow up appointment in 1 month, CD Xray of right hip given patient, all needs met
== END 2019-08-31 13:00 | disposition home health service (06) | DRG 561 ==
PROVIDERS: ADMIT Physical Medicine & Rehabilitation Pain Medicine; ATTEND Physical Medicine & Rehabilitation Pain Medicine
DX: Z47.1 Aftercare following joint replacement surgery (principal); Z96.641 Presence of right artificial hip joint; M16.11 Unilateral primary osteoarthritis, right hip; E11.9 Type 2 diabetes mellitus without complications; E78.00 Pure hypercholesterolemia, unspecified; G89.4 Chronic pain syndrome; I10 Essential (primary) hypertension; K58.9 Irritable bowel syndrome, unspecified; R53.83 Other fatigue
CPT/HCPCS: 36415; 70030-TC; 71045; 73502; 82652; 83550; 83735; 84100; 84443; 84550; 85025; 87086; 93005; J1815

== ENCOUNTER 2024-06-29 19:41 | Inpatient (IN) | payer MEDICARE, OTHER ==
[~2024-06-29] VITALS: Ht 167.6 cm; Wt 93.9 kg
[~2024-06-29 19:41] MED LIST: ACET-2154 PO; AMLO2.5T2 PO; ASPI81TA31 PO; ATOR20TA PO; CHOL10002 PO; LINA290C PO; LISI20TA30 PO; METF-440 PO; MIRA50TA PO; OXYC5CAP18 PO; SITA100T PO; TIZA4TAB5 PO; ZOLP5TAB2 PO
[2024-06-29] MEDS ORDERED: REMEDY ESSENTIAL ZINC PASTE 113 GM TOP PRN (20:00)
[2024-06-29] MEDS ORDERED: CHOL500050 PO (20:15)
[2024-06-29] MEDS ORDERED: AMLO1CAP PO (20:15)
[2024-06-29] MEDS ORDERED: OXYC10TA49 PO (20:15)
[2024-06-29] MEDS ORDERED: RIVA15TA PO (20:15)
[2024-06-29 21:10] VITALS: BP 130/52; TEMP 98.1; O2SAT 95
[2024-06-30] MEDS: OXYCODONE HCL 5 MG TABLET PO PRN (02:48)
[2024-06-30 06:00] VITALS: BP 184/87; TEMP 98.4; O2SAT 96
[2024-06-30] MEDS ORDERED: DEXTROSE 50% 50 ML DISP.SYRIN IV PRN (07:30)
[2024-06-30] MEDS: BLOOD SUGAR DIAGNOSTIC 1 EACH STRIP VI SCH (08:37)
[2024-06-30] MEDS: INSULIN REGULAR, HUMAN 1000 UNIT/10 ML VIAL SQ PRN (08:38)
[2024-06-30] MEDS: METFORMIN HCL 500 MG TABLET PO SCH (08:57)
[2024-06-30] MEDS: ASPIRIN 81 MG TAB.CHEW PO SCH (08:57)
[2024-06-30] MEDS: TIZANIDINE HCL 4 MG TABLET PO SCH (08:58)
[2024-06-30] MEDS: AMLODIPINE 2.5 MG TABLET PO SCH (08:59)
[2024-06-30] MEDS: BENAZEPRIL HCL 5 MG TABLET PO SCH (09:00)
[2024-06-30] MEDS ORDERED: LISINOPRIL 20 MG TABLET PO SCH (09:00)
[2024-06-30 10:30] VITALS: BP 118/65; O2SAT 94
[2024-06-30] MEDS ORDERED: METO25TA6 PO (11:49)
[2024-06-30] MEDS ORDERED: ESZO2TAB22 PO (11:52)
[2024-06-30] MEDS ORDERED: FOLI1TAB94 PO (11:53)
[2024-06-30] MEDS ORDERED: OLME5TAB3 PO (12:00)
[2024-06-30] MEDS ORDERED: OLME20TA13 PO (12:00)
[2024-06-30] MEDS ORDERED: AMLO2.5T4 PO (12:32)
[2024-06-30 16:00] VITALS: BP 146/65; TEMP 98.8; O2SAT 94
[2024-06-30] MEDS: METOPROLOL TARTRATE 25 MG TABLET PO SCH (17:16)
[2024-06-30] MEDS: RIVAROXABAN 10 MG TABLET PO SCH (18:22)
[2024-06-30] MEDS: ATORVASTATIN 20 MG TABLET PO SCH (21:10)
[2024-06-30 21:12] VITALS: BP 159/68; TEMP 96.7; O2SAT 96
[2024-07-01] MEDS: MAGNESIUM HYDROXIDE 30 ML LIQUID UDC PO PRN (02:36)
[2024-07-01 06:08] VITALS: BP 163/97; TEMP 98; O2SAT 94
[2024-07-01] MEDS: hydrALAZINE HCL 25 MG TABLET PO PRN (06:15)
[2024-07-01] MEDS: FOLIC ACID 1 MG TABLET PO SCH (09:04)
[2024-07-01] MEDS: LOSARTAN POTASSIUM 50 MG TABLET PO SCH (09:04)
[2024-07-01] MEDS: CHOLECALCIFEROL 1,000 UNIT TABLET PO SCH (09:05)
[2024-07-01] MEDS: AMLODIPINE 2.5 MG TABLET PO SCH (09:05)
[2024-07-01 10:16] VITALS: BP 107/55; O2SAT 94
[2024-07-01] MEDS: SENNOSIDES/DOCUSATE SODIUM TABLET PO SCH (13:12)
[2024-07-01 16:39] VITALS: BP 157/89; TEMP 98.4; O2SAT 92
[2024-07-01 19:48] VITALS: BP 112/77; TEMP 98.7; O2SAT 93
[2024-07-01] MEDS: MORPHINE SULFATE SR 15 MG TABLET.SA PO SCH (21:02)
[2024-07-02 06:35] VITALS: BP 177/77; TEMP 98.4; O2SAT 95
[2024-07-02 16:05] VITALS: BP 139/59; TEMP 98.2; O2SAT 95
[2024-07-02] MEDS: GLUCERNA SHAKE 237 ML CAN PO SCH (17:02)
[2024-07-02] MEDS: BISACODYL 10 MG SUPP.RECT RC PRN (19:16)
[2024-07-02 20:09] VITALS: BP 107/52; TEMP 98.2; O2SAT 97
[2024-07-03 05:02] VITALS: BP 183/66; TEMP 98.5; O2SAT 94
[2024-07-03 08:19] LABS: BASOPHILS # (AUTO) 0.1 K/UL (0.0-0.2); BASOPHILS % (AUTO) 0.7 % (0.0-2.0); EOSINOPHILS # (AUTO) 0.3 K/uL (0.0-0.7); EOSINOPHILS % (AUTO) 2.8 % (0.0-7.0); HEMATOCRIT 33.9 % (31.2-41.9); HEMOGLOBIN 11.4 g/dL (10.9-14.3); LYMPHOCYTES # (AUTO) 1.7 K/uL (0.8-4.8); LYMPHOCYTES % (AUTO) 14.7 % (20.5-51.5); MEAN CORPUSCULAR HEMOGLOBIN 29.4 uug (24.7-32.8); MEAN CORPUSCULAR HGB CONC 34 g/dL (32.3-35.6); MEAN CORPUSCULAR VOLUME 87.2 fL (75.5-95.3); MONOCYTES # (AUTO) 1.3 K/uL (0.1-1.30); NEUTROPHILS # (AUTO) 8.1 K/uL (1.8-8.9); NEUTROPHILS % (AUTO) 70.8 % (38.5-71.5); PLATELET COUNT (AUTO) 403 K/uL (179-408); RED BLOOD CELL COUNT(AUTO) 3.89 MIL/uL (3.63-4.92); RED CELL DISTRIBUTION WIDTH 14.5 % (12.3-17.7); WHITE BLOOD COUNT (AUTO) 11.5 K/uL (3.8-11.8)
[2024-07-03 08:30] LABS: IRON, SERUM 33 ug/dL (50-175)
[2024-07-03 08:31] LABS: DIFFERENTIAL COMMENT 1
[2024-07-03 09:04] LABS: ALANINE AMINOTRANSFERASE 21 U/L (14-59); ALBUMIN 2.9 g/dL (3.4-5.0); ALKALINE PHOSPHATASE 78 U/L (50-136); ASPARTATE AMINOTRANSFERASE 16 U/L (15-37); BILIRUBIN,TOTAL 0.6 mg/dL (0.2-1.0); CALCIUM 9.3 mg/dL (8.5-10.1); CARBON DIOXIDE 30 mmol/L (21-32); CHLORIDE 100 mmol/L (98-107); CHOLESTEROL 130 mg/dL (<200); CREATININE 0.8 mg/dL (0.6-1.3); GLUCOSE 109 mg/dL (74-106); HDL CHOLESTEROL 38 mg/dL (40-60); MAGNESIUM 2.1 mg/dL (1.8-2.4); PHOSPHOROUS 3.2 mg/dL (2.5-4.9); SODIUM SERUM 137 mmol/L (136-145); TOTAL PROTEIN, SERUM 6.9 g/dL (6.4-8.2); TRIGLYCERIDES 126 MG/DL (30-150); UREA NITROGEN, BLOOD 24 mg/dL (7-18)
[2024-07-03 09:29] LABS: THYROID STIMULATING HORMONE 1.651 mIU/mL (0.358-3.740)
[2024-07-03 16:12] VITALS: BP 145/46; TEMP 98; O2SAT 95
[2024-07-03 20:03] VITALS: BP 129/46; TEMP 98.4; O2SAT 95
[2024-07-04 06:02] VITALS: BP 169/68; TEMP 97.9; O2SAT 95
[2024-07-04] MEDS: CYANOCOBALAMIN 1000 MCG/ML VIAL IM SCH (08:26)
[2024-07-04] MEDS: FERROUS GLUCONATE 324 MG TABLET PO SCH (09:10)
[2024-07-04] MEDS ORDERED: NALOXONE HCL 0.4 MG/ML AMPUL IV PRN (15:00)
[2024-07-04 17:41] VITALS: BP 170/72; TEMP 99.6; O2SAT 94
[2024-07-04 19:00] VITALS: BP 150/64; TEMP 98; O2SAT 95
[2024-07-04] MEDS ORDERED: AMLODIPINE 2.5 MG TABLET PO SCH (21:00)
[2024-07-04] MEDS: OXYCODONE HCL 10 MG TAB.SR.12H PO SCH (21:07)
[2024-07-04] MEDS: AMLODIPINE 5 MG TABLET PO SCH (21:08)
[2024-07-05] MEDS: OXYCODONE HCL 5 MG TABLET PO PRN (03:23)
[2024-07-05 06:00] VITALS: BP 176/69; TEMP 98.1; O2SAT 94
[2024-07-05] MEDS: METOPROLOL TARTRATE 50 MG TABLET PO SCH (08:26)
[2024-07-05 15:08] VITALS: BP 154/59; TEMP 98.4; O2SAT 95
[2024-07-05] MEDS: CARVEDILOL 12.5 MG TABLET PO SCH (17:04)
[2024-07-05 19:52] VITALS: BP 113/49; TEMP 97.6; O2SAT 93
[2024-07-06] MEDS: METHYL SALICYLATE/MENTHOL CREAM 28 GM TUBE TOP PRN (03:12)
[2024-07-06 05:24] VITALS: BP 155/65; TEMP 98.5; O2SAT 96
[2024-07-06 16:03] VITALS: BP 136/57; TEMP 98.1; O2SAT 95
[2024-07-06 20:00] VITALS: TEMP 98.4
[2024-07-07 06:00] VITALS: TEMP 98.4
[2024-07-07 16:08] VITALS: BP 119/45; TEMP 98.6; O2SAT 94
[2024-07-07 22:45] VITALS: BP 116/43; TEMP 97.8; O2SAT 94
[2024-07-08 15:09] VITALS: BP 136/45; TEMP 97.5; O2SAT 94
[2024-07-08 20:20] VITALS: BP 134/54; TEMP 97.3; O2SAT 90
[2024-07-09 15:05] VITALS: BP 117/60; TEMP 98.2; O2SAT 93
[2024-07-09 20:00] VITALS: BP 133/56; TEMP 98.8; O2SAT 92
[2024-07-10 11:01] VITALS: BP 168/71; TEMP 98.1; O2SAT 95
[2024-07-10 16:00] VITALS: BP 132/50; TEMP 98; O2SAT 98
[2024-07-10 16:22] VITALS: O2SAT 98
[2024-07-10 17:00] VITALS: BP 144/56; O2SAT 96
[2024-07-10 20:45] VITALS: BP 118/49; TEMP 98.1; O2SAT 98
[2024-07-11 04:18] VITALS: O2SAT 97
[2024-07-11 06:11] VITALS: BP 168/65; TEMP 98.1; O2SAT 98
[2024-07-11 15:28] VITALS: BP 113/45; TEMP 97.6; O2SAT 98
[2024-07-11 16:00] VITALS: O2SAT 98
[2024-07-11 20:00] VITALS: BP 107/36; TEMP 98.6; O2SAT 97
[2024-07-12 03:20] VITALS: O2SAT 98
[2024-07-12 05:31] VITALS: BP 138/42; TEMP 98.4; O2SAT 96
[2024-07-12 09:03] VITALS: BP 139/53
[2024-07-12] MEDS ORDERED: AMLO2.5T4 PO (16:24)
[2024-07-12] MEDS ORDERED: METF-440 PO (16:24)
[2024-07-12] MEDS ORDERED: ATOR20TA PO (16:24)
[2024-07-12] MEDS ORDERED: ESZO2TAB22 PO (16:24)
[2024-07-12] MEDS ORDERED: CHOL500050 PO (16:24)
[2024-07-12] MEDS ORDERED: ASPI81TA31 PO (16:24)
[2024-07-12] MEDS ORDERED: RIVA15TA PO (16:24)
[2024-07-12] MEDS ORDERED: METO25TA6 PO (16:24)
[2024-07-12] MEDS ORDERED: TIZA4TAB5 PO (16:24)
[2024-07-12] MEDS ORDERED: FOLI1TAB94 PO (16:24)
[2024-07-12] MEDS ORDERED: OLME5TAB3 PO (16:24)
[2024-07-12] MEDS ORDERED: OLME20TA13 PO (16:24)
[2024-07-12] MEDS ORDERED: MIRA50TA PO (16:24)
[2024-07-12] MEDS ORDERED: LINA290C PO (16:24)
[2024-07-17] MEDS ORDERED: CYANOCOBALAMIN 1000 MCG/ML VIAL IM SCH (09:00)
== END 2024-07-12 14:35 | disposition home health service (06) | DRG 559 ==
PROVIDERS: ADMIT Physical Medicine & Rehabilitation Pain Medicine; ATTEND Physical Medicine & Rehabilitation Pain Medicine
DX: Z47.1 Aftercare following joint replacement surgery (principal); J96.00 Acute respiratory failure, unspecified whether with hypoxia or hypercapnia; D68.59 Other primary thrombophilia; M16.12 Unilateral primary osteoarthritis, left hip; Z96.643 Presence of artificial hip joint, bilateral; E11.9 Type 2 diabetes mellitus without complications; E66.01 Morbid (severe) obesity due to excess calories; E78.5 Hyperlipidemia, unspecified; I10 Essential (primary) hypertension; Z68.33 Body mass index [BMI] 33.0-33.9, adult; G47.33 Obstructive sleep apnea (adult) (pediatric); G89.29 Other chronic pain; K29.70 Gastritis, unspecified, without bleeding; K58.9 Irritable bowel syndrome, unspecified
CPT/HCPCS: 36415; 73502; 83550; 83735; 84100; 84443; 85025; 97535-GO-CO; A4663; J1815; J3420